=== PATIENT | female | born 1980 | race Two or more races ===

== ENCOUNTER 2016-05-29 22:35 | Emergency (ER) | payer OTHER ==
[2016-05-29 22:46] VITALS: BP 107/76; PULSE 71; RESP 18; TEMP 97.9; O2SAT 97
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
[2016-05-29] MEDS ORDERED: ACETAMINOPHEN 500 MG TAB ONE (23:23)
[2016-05-29] MEDS ORDERED: ACETAMINOPHEN 500 MG TAB PO ONE (23:30)
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
[2016-05-29] MEDS ORDERED: ONDANSETRON 4MG PREPACK#2 BTL TAKEHOME ONE ×2 (23:57→23:58)
== END 2016-05-30 00:05 | disposition home or self-care (01) ==
DX: T14.8 Other injury of unspecified body region (principal); V49.50XA Passenger injured in collision with unspecified motor vehicles in traffic accident, initial encounter; Y92.410 Unspecified street and highway as the place of occurrence of the external cause

== ENCOUNTER 2017-02-24 20:27 | Emergency (ER) | payer MEDICAID, OTHER ==
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
[2017-02-24] MEDS ORDERED: ONDANSETRON 4 MG/2 ML VIAL IVP ONE (20:57)
[2017-02-24] MEDS ORDERED: NS 1,000 ML IV ONE (20:57)
[2017-02-24 22:06] VITALS: BP 110/71; PULSE 91; RESP 18; TEMP 98.2; O2SAT 99
== END 2017-02-24 22:04 | disposition home or self-care (01) ==
LOC: EDUNIT#
PROC: 3E0337Z Introduction of Electrolytic and Water Balance Substance into Peripheral Vein, Percutaneous Approach (ICD-10-PCS; principal; 2017-02-24)
DX: F12.90 Cannabis use, unspecified, uncomplicated (principal)
CPT/HCPCS: 96374; J2405

== ENCOUNTER 2017-05-16 23:58 | Emergency (ER) | payer MEDICAID, OTHER ==
--- NOTE | 2017-05-17 00:20 | EDPHY ---
H & P Stated Complaint: SOME VAG BLEEDING SENT FOR [facility] HPI/ROS: HPI CHIEF COMPLAINT: Light vaginal bleeding HISTORY OF PRESENT ILLNESS: This patient very pleasant 36-year-old female, last menstrual. Noted to be on 03/30/2017, on May 06 [facility] and [facility] at that time with a beta HCG only 215. They are unable to visualize anything on ultrasound. She subsequently then had a follow-up beta HCG on May 10 which was 454, and then subsequently had another beta HCG on 05/14/2017 it was 650. She was referred to the emergency room for further evaluation of a inappropriate increasing HCG. She does state that she has had some vaginal spotting dark blood. Patient denies any significant pelvic pain. Past Medical History: Denies significant medical history Past Surgical History: Denies significant surgical history Social History: Denies daily use of drugs alcohol tobacco products. Family History: Noncontributory. ROS REVIEW OF SYSTEMS: A comprehensive 10 point review of systems is otherwise negative aside from elements mentioned in the history of present illness. Exam Constitutional appears well nontoxic triage nursing summary reviewed, vital signs reviewed, awake/alert. Eyes normal conjunctivae and sclera, EOMI, PERRLA. HENT normal inspection, atraumatic, moist mucus membranes, no epistaxis, neck supple/ no meningismus, no raccoon eyes. Respiratory clear to auscultation bilaterally, normal breath sounds, no respiratory distress, no wheezing. Cardiovascular rate normal, regular rhythm, no murmur, no edema, distal pulses normal. Gastrointestinal soft, non-tender, no rebound, no guarding, normal bowel sounds, no distension, no pulsatile mass. Genitourinary no CVA tenderness. Musculoskeletal no midline vertebral tenderness, full range of motion, no calf swelling, no tenderness of extremities, no meningismus, good pulses, neurovascularly intact. Skin pink, warm, & dry, no rash, skin atraumatic. Neurologic awake, alert and oriented x 3, AAOx3, moves all 4 extremities equally, motor intact, sensory intact, CN II-XII intact, normal cerebellar, normal vision, normal speech. Psychiatric normal mood/affect. Heme/Lymph/Immune no lymphadenopathy. Differential Diagnosis: Includes but is not limited to in a particular order ectopic , threatened miscarriage, alert , intrauterine demise Medical Decision Making: Plan for this patient check basic blood work this includes HCG level, ultrasound, ABO Rh, basic blood work, UA and re-evaluate. Re-evaluation: ED ultrasound called to me by Dr. Perez. This shows most likely an ectopic there is 2.3 cm echogenic mass separate from the left ovary on the left side. Turning for ectopic 0136: This patient is hemodynamically stable no acute distress does not have any significant pelvic pain or significant vaginal bleeding. Will consult OBGYN about further management of this. HCG is pending at this time. 0214: Spoke With Carolina CESPEDES, will discuss the case with Dr. Bush. Dr. Bush to call back for further questioning and instructions about further care of this patient. 0228AM: Spoke extensivel with Dr. Anette Bush, discussed the case, She recommends MTX. And Then close follow up with them. 0230AM: Discussed risk/benefits with the patient versus benefit of methotrexate. She understands at length the risk of taking methotrexate. Understands the benefit of the drug. Additionally understands that it may prevent her from having surgery. She distally understands that she is to follow up with Dr. Bush next week. Understands return taking methotrexate is take chemotherapy agent and it kills fast generating cells. Can get oral mucosal sores you can get GI upset he can get vaginal cramping or pelvic cramping get vaginal bleeding. Went over this in length with. She understands she would like to proceed with methotrexate. We went over extensively the risk versus benefit of methotrexate. Additionally she understands that OBGYN Dr. Bush should be calling her to set up a repeat HCG in 4 days or on Saturday. Additionally will have a follow-up appointment in 1 week or Saturday. Additionally return precautions discussed with the patient extensively. She understands return emergency room if she has severe abdominal pain vaginal bleeding, GI upset that is severe, or any questions or concerns or does not feel well. Source: Patient - Personal History LMP (Females 10-55): EDC: 01/01/18 Current Tetanus/Diphtheria Vaccine: Yes Current Tetanus Diphtheria and Acellular Pertussis (TDAP): Yes - Medical/Surgical History Hx Asthma: No Hx Chronic Respiratory Disease: No Hx Diabetes: No Hx Cardiac Disease: No Hx Renal Disease: No Hx Cirrhosis: No Hx Alcoholism: No Hx HIV/AIDS: No Other PMH: DENIES - Social History Smoking Status: Never smoked Constitutional: Initial Vital Signs Temperature (C) 37.1 C 05/17/17 00:00 Heart Rate 74 05/17/17 00:00 Respiratory Rate 18 05/17/17 00:00 Blood Pressure 109/67 05/17/17 00:00 O2 Sat (%) 96 05/17/17 00:00 O2 Delivery Mode Room Air Allergies/Adverse Reactions: No Known Allergies Allergy (Unverified 05/17/17 00:06) Home Medications: Medication Instructions Recorded NK [No Known Home Meds] 05/17/17 Medical Decision Making - Data Points Laboratory Results: Laboratory Results 05/17/17 00:45 05/17/17 00:45 05/17/17 05/17/17 05/17/17 00:45 00:45 00:45 WBC RBC Hgb Hct MCV MCH MCHC RDW Plt Count MPV Neut % (Auto) Lymph % (Auto) Perry % (Auto) Eos % (Auto) Baso % (Auto) Nucleat RBC Rel Count Absolute Neuts (auto) Absolute Lymphs (auto) Absolute Monos (auto) Absolute Eos (auto) Absolute Basos (auto) Absolute Nucleated RBC Immature Gran % Immature Gran # Sodium 143 mEq/L mEq/L (134-144) Potassium 4.1 mEq/L mEq/L (3.5-5.2) Chloride 107 mEq/L mEq/L (97-110) Carbon Dioxide 27 mEq/l mEq/l (22-31) Anion Gap 9 mEq/L mEq/L (8-16) BUN 14 mg/dL mg/dL (7-23) Creatinine 0.7 mg/dL mg/dL (0.6-1.0) Estimated GFR > 60 Glucose 85 mg/dL mg/dL (70-100) Calcium 9.3 mg/dL mg/dL (8.5-10.4) Beta HCG, Qual Beta HCG, Quant 534.83 mIU/mL H mIU/mL (0.00-4.83) Urine Color YELLOW Urine Appearance CLEAR Urine pH 7.0 (5.0-7.5) Ur Specific [place] 1.011 (1.002-1.030) Urine Protein NEGATIVE (NEGATIVE) Urine Ketones NEGATIVE (NEGATIVE) Urine Blood 2+ H (NEGATIVE) Urine Nitrate NEGATIVE (NEGATIVE) Urine Bilirubin NEGATIVE (NEGATIVE) Urine Urobilinogen NEGATIVE EU EU (0.2-1.0) Ur Leukocyte Esterase NEGATIVE (NEGATIVE) Urine RBC 1-3 /hpf /hpf (0-3) Urine WBC 1-3 /hpf /hpf (0-3) Ur Epithelial Cells TRACE /lpf /lpf (NONE-1+) Amorphous Sediment PRESENT /hpf /hpf (NONE-1+) Urine Glucose NEGATIVE (NEGATIVE) Patient ABO/Rh A POSITIVE 05/17/17 05/17/17 00:45 00:45 WBC 7.00 10^3/uL 10^3/uL (3.80-9.50) RBC 4.69 10^6/uL 10^6/uL (4.18-5.33) Hgb 14.1 g/dL g/dL (12.6-16.3) Hct 40.9 % % (38.0-47.0) MCV 87.2 fL fL (81.5-99.8) MCH 30.1 pg pg (27.9-34.1) MCHC 34.5 g/dL g/dL (32.4-36.7) RDW 13.4 % % (11.5-15.2) Plt Count 214 10^3/uL 10^3/uL (150-400) MPV 10.3 fL fL (8.7-11.7) Neut % (Auto) 58.4 % % (39.3-74.2) Lymph % (Auto) 25.6 % % (15.0-45.0) Perry % (Auto) 13.3 % H % (4.5-13.0) Eos % (Auto) 1.7 % % (0.6-7.6) Baso % (Auto) 0.7 % % (0.3-1.7) Nucleat RBC Rel Count 0.0 % % (0.0-0.2) Absolute Neuts (auto) 4.09 10^3/uL 10^3/uL (1.70-6.50) Absolute Lymphs (auto) 1.79 10^3/uL 10^3/uL (1.00-3.00) Absolute Monos (auto) 0.93 10^3/uL H 10^3/uL (0.30-0.80) Absolute Eos (auto) 0.12 10^3/uL 10^3/uL (0.03-0.40) Absolute Basos (auto) 0.05 10^3/uL 10^3/uL (0.02-0.10) Absolute Nucleated RBC 0.00 10^3/uL 10^3/uL (0-0.01) Immature Gran % 0.3 % % (0.0-1.1) Immature Gran # 0.02 10^3/uL 10^3/uL (0.00-0.10) Sodium Potassium Chloride Carbon Dioxide Anion Gap BUN Creatinine Estimated GFR Glucose Calcium Beta HCG, Qual POSITIVE Beta HCG, Quant Urine Color Urine Appearance Urine pH Ur Specific [place] Urine Protein Urine Ketones Urine Blood Urine Nitrate Urine Bilirubin Urine Urobilinogen Ur Leukocyte Esterase Urine RBC Urine WBC Ur Epithelial Cells Amorphous Sediment Urine Glucose Patient ABO/Rh Medications Given: Discontinued Medications Sodium Chloride (Ns) 1,000 mls @ 0 mls/hr IV EDNOW ONE; Wide Open PRN Reason: Protocol Stop: 05/17/17 00:26 Last Admin: 05/17/17 01:58 Dose: Not Given Departure - Departure Disposition: Home, Routine, Self-Care Clinical Impression: Ectopic Qualifiers: Location of ectopic : abdominal Intrauterine status: without intrauterine Qualified Code(s): O00.00 - Abdominal without intrauterine Condition: Good Instructions: Ectopic (ED) Additional Instructions: 1. Return emergency room if you have any worsening symptoms includes severe abdominal pain, severe vaginal bleeding or you do not feel well or any questions or concerns. 2. Follow up with OBGYN as discussed. 3. Your due to have a repeat HCG level on Saturday. 4. Additionally you to follow up with OBGYN on Saturday of next week. They should be calling to set up an appointment. Referrals: NONE *PRIMARY CARE P,. [Primary Care Provider] - As per Instructions Anette Bush MD [Medical Doctor] - As per Instructions
[2017-05-17] MEDS ORDERED: NS 1,000 ML IV ONE (00:25)
[2017-05-17 00:55] LABS: PLATELET COUNT 214 10^3/uL (150-400)
[2017-05-17] MEDS ORDERED: METHOTREXATE 25 MG/ML SYRINGE IM ONE ×2 (02:40→03:30)
[2017-05-17 04:14] VITALS: RESP 16
[2017-05-17 04:16] VITALS: BP 107/82; PULSE 73; TEMP 98.1; O2SAT 95
== END 2017-05-17 04:29 | disposition home or self-care (01) ==
DX: O00.00 Abdominal pregnancy without intrauterine pregnancy (principal); Z3A.08 8 weeks gestation of pregnancy
CPT/HCPCS: J9250